=== PATIENT | male | born 1970 ===

== ENCOUNTER → 2020-05-07 13:06 | Outpatient (BNVA) | payer OTHER, SELFPAY | PROVIDERS: PCP Internal Medicine; Visit Provider Internal Medicine Cardiovascular Disease | DX: I25.10 Atherosclerotic heart disease of native coronary artery without angina pectoris (principal); I25.2 Old myocardial infarction | CPT/HCPCS: 93005 ==

== ENCOUNTER → 2020-11-12 12:49 | Outpatient (BNVA) | payer OTHER, SELFPAY | PROVIDERS: PCP Internal Medicine; Referring Provider Internal Medicine; Visit Provider Internal Medicine Cardiovascular Disease | DX: I25.10 Atherosclerotic heart disease of native coronary artery without angina pectoris (principal) | CPT/HCPCS: 93005 ==

== ENCOUNTER → 2021-12-17 15:00 | Outpatient (BNVA) | payer BC, SELFPAY | PROVIDERS: PCP Internal Medicine; Visit Provider Internal Medicine Cardiovascular Disease | DX: I25.10 Atherosclerotic heart disease of native coronary artery without angina pectoris (principal); I25.2 Old myocardial infarction; R94.31 Abnormal electrocardiogram [ECG] [EKG] | CPT/HCPCS: 93005 ==

== ENCOUNTER → 2022-01-11 14:49 | Outpatient (REF) | payer BC, SELFPAY ==
--- NOTE | 2022-01-11 14:56 | CA_ITS ---
Transthoracic Echocardiogram Patient (Last, First, Middle): Corby Crews, Gender: Male Date of : 1970 Age: 51 Procedure Date: 01/11/2022 Procedure Type: Transthoracic Echocardiogram Location: OP Height: 172.72 cm Weight: 113.4 kg BSA: 2.25 m2 Heart Rate: 64 bpm BP: 112 / 80 mmHg [place] Drawer: SB Referring MD: Jayme Smallwood MD Telegraph Lineman: Jayme Smallwood MD Symptoms: I25.10 - Atherosclerotic heart disease of [place] coronary artery without... Study Quality: Adequate ECG Rhythm: Sinus Conclusions: - Normal left ventricular size, thickness, and systolic function. The visually estimated ejection fraction is between 55-60%. There is evidence of regional wall motion abnormalities. Diastolic function is normal for age. - The apical inferior segment is hypokinetic. - Normal right ventricular cavity size and systolic function. Findings Left Ventricle Normal left ventricular size, thickness, and systolic function. The visually estimated ejection fraction is between 55-60%. There is evidence of regional wall motion abnormalities. Diastolic function is normal for age. Wall Motion Rest Echo Findings The apical inferior segment is hypokinetic. Right Ventricle Normal right ventricular cavity size and systolic function. Atria Both atria are normal in size. Aortic Valve Normal aortic valve structure and function. There is no aortic valve stenosis. There is no aortic valve regurgitation. Mitral Valve Normal mitral valve structure and function. There is no mitral valve regurgitation. There is no mitral valve stenosis. Pulmonic Valve The pulmonic valve is likely normal. Tricuspid Valve Normal tricuspid valve structure. There is trace tricuspid valve regurgitation. Normal right atrial pressure. There is no evidence of pulmonary hypertension. Great Vessels All visible segments of the aorta are normal in size. The visualized portions of the pulmonary artery and branches are normal. Venous The inferior vena cava is normal in size and collapses greater than 50% with inspiration. Pericardium/Pleural There is no evidence of pericardial effusion. Prior Study Comparison No prior study available for comparison. Measurements 2D Linear Measurements IVSd: 0.85 0.6-0.9/0.6-1.0 cm LVIDd: 4.96 3.9-5.3/4.2-5.9 cm LVIDd Index: 2.20 2.4-3.2/2.2-3.1 cm/m2 LVIDs: 3.35 2.0-3.6 cm LVPWd: 0.90 0.7-1.1 cm LA Diam: 3.50 2.7-3.8/3.0-4.0 cm LAIDs Index: 1.56 1.5-2.3 cm/m2 LV Mass: 187.43 67-162/88-224 g LV Mass Index: 83.30 43-95/49-115 g/m2 LVOT Diam: 2.20 3.0+(-)1.3 cm 2D Systolic Function EF 4C: 57.40 >55% EF 2C: 61.70 >55% EF BiP: 59.10 >55% Mitral Valve MV Pk E: 0.71 MV PK A: 0.45 MV Decel Time: 170.00 E/A: 1.60 E'Lateral: 12.80 E'Medial: 9.25 E/E' Med: 7.60 E/E' Lat: 5.50 PHT: 50.00 MVA PHT: 4.40 Decel [place]: 4.17 Aortic Valve AoV Pk Jong: 1.15 AoV Mn Jong: 0.79 AoV VTI: 0.26 AoV Pk Grad: 5.00 Aov Mn Grad: 3.00 LIBORIO Cont.VTI: 3.33 LVOT LVOT Pk Jong: 1.10 LVOT Mn Jong: 0.73 LVOT VTI: 0.23 LVOT Pk Grad: 5.00 LVOT Mn Grad: 3.00 LVOT Diam: 2.20 LVOT Area: 3.80 Diastolic Function MV Pk E: 0.71 MV Pk A: 0.45 E/A: 1.60 E'Medial: 9.25 E/E' Med: 7.60 E' Laterial: 12.80 E/E' Lat: 5.50 Right Ventricle TAPSE (mm): 19.80 Tricuspid Valve TR Pk Jong: 2.16 TR Pk Grad: 19.00 RA Press: 3.00 RVSP: 22.00 Great Vessels Aorta Sinus of Valsalva: 2.90 2.0-3.5 cm Ao Asc: 2.60 2.1-3.4 cm Pulmonary Veins Pulm Vein S/D 1.20 Pulmonary Valve PV Pk Jong: 1.10 Peak PV Grad: 5.00 Updated in Other Vendor System with Status of Final Jayme Smallwood MD electronically signed on 01/12/2022 6:16:56 PM with status of Final
== END ==
LOC: HO.CARD 14:49
PROVIDERS: PCP Internal Medicine; Visit Provider Internal Medicine Cardiovascular Disease
DX: I25.10 Atherosclerotic heart disease of native coronary artery without angina pectoris (principal)
CPT/HCPCS: 93306

== ENCOUNTER → 2022-02-11 10:56 | Outpatient (REF) | payer BC, SELFPAY ==
--- NOTE | 2022-02-11 10:59 | CA_ITS ---
Acquisition Time: 2022-02-11 11:18:30 Total Exercise Time: 00:10:38 Test Indications: ABN EKG Medications: SEE CHART Protocol: NASEEM Max HR: 155 BPM 91% of Pred: 170 BPM Max BP: 152/070 mmHG Max Work Load: 12.7 METS Exercise stress test with exercise 10 min 38 sec of Naseem protocol, acheiving > 85% MPHR, 12.7 METs, without anginal symptoms, with isolated PVCs, with normotensive response to exercise, without EKG changes meeting criteria for ischemia. Echo images obtained by tech at rest and immediately post peak exercise. Definity contrast used. Test reviewed with Dr Aguirre Referred By: Jayme Smallwood Overread By: BECKY SCHREIBER
== END ==
LOC: HO.CARD 10:56
PROVIDERS: PCP Internal Medicine; Visit Provider Internal Medicine Cardiovascular Disease
DX: I25.10 Atherosclerotic heart disease of native coronary artery without angina pectoris (principal)
CPT/HCPCS: 93350; Q9957

== ENCOUNTER 2022-11-29 15:07 | Outpatient (AMB) | payer BC, SELFPAY ==
[2022-11-29 15:10] VITALS: BP 134/72; PULSE 77; BMI 36.8
--- NOTE | 2022-11-29 15:10 | A.OFFVIS_ITS ---
Intake Vital Signs 11/29/22 15:10 Height 5 ft 9 in Weight 249 lb 1.957 oz BMI 36.8 BP 134/72 Blood Pressure Location Lt brachial Position Sitting Pulse 77 Intake Visit Reasons: 1 year fu Intake Note: 1 year f/u Mobile Sales Expert Required: No Allergies No Known Allergies Allergy (Verified 11/29/22 15:13) Medication List - Last Reconciled 11/29/22 by Jayme Smallwood MD aspirin (Adult Low Dose Aspirin) 81 mg PO DAILY atorvastatin 80 mg PO DAILY metoprolol tartrate 25 mg PO BID HPI HPI Comments History of Present Illness Details 51-year-old gentleman who was taken for cardiac cath in the setting of inferior STEMI. He was found to have a proximal RCA 100% stenosis which was treated with a 3.5 mm x 18 mm [place] BRISA post dilated to 3.75 mm. He has been asymptomatic. He has no CP, SOB or bleeding. He returns for follow-up to 1 year. He continues to be asymptomatic. He has not been as active as before and gained some weight. His EKG on this visit is different and he has Q-waves in anterolateral leads and I cannot rule out underlying lateral infarct. Discussing with him he is denying any symptoms in particular does not have symptoms similar to when he presented with inferior STEMI. He is saying he has not been as active as before and he has gained some weight. Blood pressure control is good. Otherwise doing well. 11/29/22: He returns for follow-up. We will refer him for echocardiography which showed distal inferior wall motion. No when stress testing where he was able to exercise to 10.7 metabolic equivalents without any significant symptoms and overall stress echocardiogram was normal. He returns for follow-up and has been doing well. Taking medications regularly. No concerns on his part [facility] Surgical History History of heart artery stent Hx of cardiac cath Family History Father Heart murmur Mother No problems noted. Social History Alcohol intake: current Alcohol intake frequency: a few times a week Alcohol type: beer, wine and hard liquor Patient Tobacco Use Status: Former Tobacco user Quit Date: 2016 Years Smoked: 30 +/- Review of Systems ENT Reports dizziness Card Denies chest pain, Denies chest pain at rest, Denies chest pain with activity, Denies rapid heart rate, Denies pedal edema, Denies edema, Denies leg edema, Denies lightheadedness, Denies palpitations, Denies dyspnea, Denies dyspnea on exertion and Denies orthopnea Resp Denies cough, Denies dyspnea and Denies dyspnea on exertion GI Denies hematochezia and Denies change in stool character Musc Denies abnormal gait, Reports limited range of motion, Reports muscle cramps, Denies muscle weakness, Denies numbness, Denies radiating pain into limb, Denies stiffness and Denies tingling Neuro Denies abnormal gait, Reports dizziness, Denies numbness and Denies tingling Endo Denies palpitations Physical Exam Vital Signs: Last Vital Signs Pulse 77 11/29/22 15:10 BP 134/72 11/29/22 15:10 BMI result Body Mass Index 36.8 GENERAL APPEARANCE: in no acute distress, pleasant. NECK: no carotid bruit, no jugular venous distention. SKIN: no suspicious lesions, warm and dry. HEART: no murmurs, regular rate and rhythm. LUNGS: clear to auscultation bilaterally. ABDOMEN: soft, nontender. EXTREMITIES: no edema. PERIPHERAL PULSES: equal. NEUROLOGIC: No gross deficits, AAO X 3 Office Procedures EKG Details: Sinus rhythm 77 beats per minute, inferior infarct, cannot rule out anterolateral infarct, QTC 454 milliseconds. [id number], Complete Assessment & Plan Assessment & Plan (1) CAD (coronary artery disease): Comment: Stable. Code(s): I25.10 - Atherosclerotic heart disease of [place] coronary artery without angina pectoris Qualifiers: Coronary Disease-Associated Artery/Lesion type: [place] artery [place] vs. transplanted heart: [place] heart Associated angina: without angina Qualified Code(s): I25.10 - Atherosclerotic heart disease of [place] coronary artery without angina pectoris (2) Abnormal EKG: Code(s): R94.31 - Abnormal electrocardiogram [ECG] [EKG] Plan 52-year-old gentleman with known inferior STEMI in the past with primary PCI to his returning for follow-up. He previously had EKG performed which showed inferior as well as anterolateral infarct. EKGs still showing the same changes. His echocardiography has not shown any evidence of anterior or lateral infarction. Distal inferior wall motion was noticed on the resting echocardiography but stress echocardiogram overall was normal. He has been he has showed at this stage. He will report to us if he developed any discomfort in his arms or chest. Follow-up with us in 1 year. Thank you for allowing me to participate in the care of your patient. Please feel free to contact me if you have any questions. Coding Level of Care Code Est Pt Level 4 (08326) Diagnoses Coronary artery disease involving [place] coronary artery of [place] heart without angina pectoris I25.10 Coronary Disease-Associated Artery/Lesion type: [place] artery [place] vs. transplanted heart: [place] heart Associated angina: without angina Abnormal EKG R94.31 CPT Codes EKG - CPT: 62132-[id number], Complete ([id number])
== END 2022-11-29 15:27 | disposition home or self-care (01) ==
PROVIDERS: PCP Internal Medicine; Visit Provider Internal Medicine Cardiovascular Disease
DX: I25.10 Atherosclerotic heart disease of native coronary artery without angina pectoris (principal); R94.31 Abnormal electrocardiogram [ECG] [EKG]
CPT/HCPCS: 93010; 99214

== ENCOUNTER → 2022-11-29 15:07 | Outpatient (BNVA) | payer BC, SELFPAY | PROVIDERS: PCP Internal Medicine; Visit Provider Internal Medicine Cardiovascular Disease | DX: I25.10 Atherosclerotic heart disease of native coronary artery without angina pectoris (principal); R94.31 Abnormal electrocardiogram [ECG] [EKG]; I25.2 Old myocardial infarction | CPT/HCPCS: 93005 ==

== ENCOUNTER 2023-12-05 10:21 | Outpatient (AMB) | payer BC, SELFPAY ==
[2023-12-05 10:44] VITALS: BP 122/80; PULSE 73; BMI 37.4
--- NOTE | 2023-12-05 10:44 | MHC.OFFVIS ---
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 He was found to have a proximal RCA 100% stenosis which was treated with a 3.5 mm x 18 mm [place] BRISA post dilated to 3.75 mm. He has been asymptomatic. He has no CP, SOB or bleeding. He returns for follow-up to 1 year. He continues to be asymptomatic. He has not been as active as before and gained some weight. His EKG on this visit is different and he has Q-waves in anterolateral leads and I cannot rule out underlying lateral infarct. Discussing with him he is denying any symptoms in particular does not have symptoms similar to when he presented with inferior STEMI. He is saying he has not been as active as before and he has gained some weight. Blood pressure control is good. Otherwise doing well. 11/29/22: He returns for follow-up. We will refer him for echocardiography which showed distal inferior wall motion. No when stress testing where he was able to exercise to 10.7 metabolic equivalents without any significant symptoms and overall stress echocardiogram was normal. He returns for follow-up and has been doing well. Taking medications regularly. 12/05/2023: He is here for follow-up. No chest pain or shortness of breath. His previous EKG showed inferior infarct as well as anterolateral infarct. Echo and stress test did not show any evidence of ischemia or wall motion in that territory. He continues to have similar changes on his ECG. He continues to be asymptomatic. [facility] Surgical History History of heart artery stent Hx of cardiac cath Family History Father Heart murmur Mother No problems noted. Social History Alcohol intake: current Alcohol intake frequency: a few times a week Alcohol type: beer, wine and hard liquor Patient Tobacco Use Status: Former Tobacco user Years Smoked: 30 +/- Review of Systems ENT Reports dizziness Card Denies chest pain, Denies chest pain at rest, Denies chest pain with activity, Denies rapid heart rate, Denies pedal edema, Denies edema, Denies leg edema, Denies lightheadedness, Denies palpitations, Denies dyspnea, Denies dyspnea on exertion and Denies orthopnea Resp Denies cough, Denies dyspnea and Denies dyspnea on exertion GI Denies hematochezia and Denies change in stool character Musc Denies abnormal gait, Reports limited range of motion, Reports muscle cramps, Denies muscle weakness, Denies numbness, Denies radiating pain into limb, Denies stiffness and Denies tingling Neuro Denies abnormal gait, Reports dizziness, Denies numbness and Denies tingling Endo Denies palpitations Physical Exam Vital Signs: Last Vital Signs Pulse 73 12/05/23 10:44 BP 122/80 12/05/23 10:44 BMI result Body Mass Index 37.4 GENERAL APPEARANCE: in no acute distress, pleasant. NECK: no carotid bruit, no jugular venous distention. SKIN: no suspicious lesions, warm and dry. HEART: no murmurs, regular rate and rhythm. LUNGS: clear to auscultation bilaterally. ABDOMEN: soft, nontender. EXTREMITIES: no edema. PERIPHERAL PULSES: equal. NEUROLOGIC: No gross deficits, AAO X 3 Office Procedures EKG Details: Sinus rhythm 73 beats per minute, inferior infarct, anterolateral infarct, QTC 453 milliseconds. No new changes. [id number], Complete Assessment & Plan Assessment & Plan (1) Abnormal EKG: Code(s): R94.31 - Abnormal electrocardiogram [ECG] [EKG] Category: Medical (2) CAD (coronary artery disease): Comment: Stable. Code(s): I25.10 - Atherosclerotic heart disease of [place] coronary artery without angina pectoris Category: Medical Qualifiers: Coronary Disease-Associated Artery/Lesion type: [place] artery [place] vs. transplanted heart: [place] heart Associated angina: without angina Qualified Code(s): I25.10 - Atherosclerotic heart disease of [place] coronary artery without angina pectoris (3) Stable angina: Code(s): I20.89 - Other forms of angina pectoris Category: Medical Plan 53-year-old gentleman with known inferior STEMI in the past with primary PCI who is returning for follow-up. He previously had EKG performed which showed inferior as well as anterolateral infarct. EKGs still showing the same changes. His echocardiography has not shown any evidence of anterior or lateral infarction. Distal inferior wall motion was noticed on the resting echocardiography but stress echocardiogram overall was normal. He has been reassured at this stage. He continues to be asymptomatic. Follow-up with us in 6 months. Thank you for allowing me to participate in the care of your patient. Please feel free to contact me if you have any questions. Coding Level of Care Code Est Pt Level 4 (88545) Diagnoses Abnormal EKG R94.31 Coronary artery disease involving [place] coronary artery of [place] heart without angina pectoris I25.10 Coronary Disease-Associated Artery/Lesion type: [place] artery [place] vs. transplanted heart: [place] heart Associated angina: without angina Stable angina I20.89 CPT Codes EKG - CPT: 49572-[id number], Complete ([id number])
== END 2023-12-05 11:01 | disposition home or self-care (01) ==
PROVIDERS: PCP Internal Medicine; Visit Provider Internal Medicine Cardiovascular Disease
DX: I25.118 Atherosclerotic heart disease of native coronary artery with other forms of angina pectoris (principal); R94.31 Abnormal electrocardiogram [ECG] [EKG]
CPT/HCPCS: 93010; 99214

== ENCOUNTER → 2023-12-05 10:21 | Outpatient (BNVA) | payer BC, SELFPAY | PROVIDERS: PCP Internal Medicine; Visit Provider Internal Medicine Cardiovascular Disease | DX: R94.31 Abnormal electrocardiogram [ECG] [EKG] (principal); I25.118 Atherosclerotic heart disease of native coronary artery with other forms of angina pectoris; I25.2 Old myocardial infarction | CPT/HCPCS: 93005 ==

== ENCOUNTER 2024-08-08 08:58 | Outpatient (AMB) | payer BC, SELFPAY ==
[2024-08-08 09:21] VITALS: BP 130/82; PULSE 71; BMI 356.8
--- NOTE | 2024-08-08 09:21 | MHC.OFFVIS ---
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 He was found to have a proximal RCA 100% stenosis which was treated with a 3.5 mm x 18 mm [place] BRISA post dilated to 3.75 mm. He has been asymptomatic. He has no CP, SOB or bleeding. He returns for follow-up to 1 year. He continues to be asymptomatic. He has not been as active as before and gained some weight. His EKG on this visit is different and he has Q-waves in anterolateral leads and I cannot rule out underlying lateral infarct. Discussing with him he is denying any symptoms in particular does not have symptoms similar to when he presented with inferior STEMI. He is saying he has not been as active as before and he has gained some weight. Blood pressure control is good. Otherwise doing well. 11/29/22: He returns for follow-up. We will refer him for echocardiography which showed distal inferior wall motion. No when stress testing where he was able to exercise to 10.7 metabolic equivalents without any significant symptoms and overall stress echocardiogram was normal. He returns for follow-up and has been doing well. Taking medications regularly. 12/05/2023: He is here for follow-up. No chest pain or shortness of breath. His previous EKG showed inferior infarct as well as anterolateral infarct. Echo and stress test did not show any evidence of ischemia or wall motion in that territory. He continues to have similar changes on his ECG. He continues to be asymptomatic. 08/08/2024: He is here for follow-up. Denying chest pain or shortness of breath. He is playing [employer] and has no exertional issues. Taking medications regularly. [facility] Surgical History History of heart artery stent Hx of cardiac cath Family History Father Heart murmur Mother No problems noted. Social History Alcohol intake: current Alcohol intake frequency: a few times a week Alcohol type: beer, wine and hard liquor Patient Tobacco Use Status: Former Tobacco user Years Smoked: 30 +/- Review of Systems Const Denies chills, Denies fatigue, Denies fever(s), Denies frequent falls, Denies weakness, Denies weight gain and Denies weight loss ENT Denies dizziness Card Denies chest pain, Denies leg edema, Denies lightheadedness, Denies palpitations, Denies dyspnea and Denies dyspnea on exertion Resp Denies cough, Denies dyspnea and Denies dyspnea on exertion GI Denies hematochezia Musc Denies abnormal gait, Denies muscle weakness, Denies numbness, Denies radiating pain into limb and Denies tingling Neuro Denies abnormal gait, Denies dizziness, Denies frequent falls, Denies numbness, Denies tingling and Denies weakness Endo Denies fatigue and Denies palpitations Physical Exam Vital Signs: Last Vital Signs Pulse 71 08/08/24 09:21 BP 130/82 08/08/24 09:21 BMI result Body Mass Index 356.8 GENERAL APPEARANCE: in no acute distress, pleasant. NECK: no carotid bruit, no jugular venous distention. SKIN: no suspicious lesions, warm and dry. HEART: no murmurs, regular rate and rhythm. LUNGS: clear to auscultation bilaterally. ABDOMEN: soft, nontender. EXTREMITIES: no edema. PERIPHERAL PULSES: equal. NEUROLOGIC: No gross deficits, AAO X 3 Office Procedures EKG Details: Sinus rhythm 71 beats per minute, normal axis, poor R-wave progression, QTC 436 milliseconds. [id number], Complete Assessment & Plan Assessment & Plan (1) CAD (coronary artery disease): Comment: Stable. Code(s): I25.10 - Atherosclerotic heart disease of [place] coronary artery without angina pectoris Category: Medical Qualifiers: Coronary Disease-Associated Artery/Lesion type: [place] artery [place] vs. transplanted heart: [place] heart Associated angina: without angina Qualified Code(s): I25.10 - Atherosclerotic heart disease of [place] coronary artery without angina pectoris (2) Stable angina: Code(s): I20.89 - Other forms of angina pectoris Category: Medical Plan 54-year-old gentleman with known inferior STEMI in the past with primary PCI who is returning for follow-up. He previously had EKG performed which showed inferior as well as anterolateral infarct. EKGs still showing the same changes. His echocardiography has not shown any evidence of anterior or lateral infarction. Distal inferior wall motion was noticed on the resting echocardiography but stress echocardiogram overall was normal. He has been physically active and has no symptoms. His LDL target is less than 55. He is saying that he gets blood workup through his primary care physician at his office. We do not have access to that currently. Follow up in 1 year. Thank you for allowing me to participate in the care of your patient. Please feel free to contact me if you have any questions. Coding Level of Care Code Est Pt Level 3 (06765) Complex EM visit Add On G2211 Diagnoses Coronary artery disease involving [place] coronary artery of [place] heart without angina pectoris I25.10 Coronary Disease-Associated Artery/Lesion type: [place] artery [place] vs. transplanted heart: [place] heart Associated angina: without angina Stable angina I20.89 CPT Codes EKG - CPT: 81292-[id number], Complete ([id number])
--- OUTSIDE RECORDS SUMMARY | 2024-08-08 09:25 | XMS_ITS | Clinical Summary ---
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 03/26/2019 Active metoprolol tartrate (LOPRESSOR) 25 mg tablet Take 1 tablet (25 mg total) by mouth. 03/26/2019 Active atorvastatin (LIPITOR) 80 mg tablet Take 1 tablet (80 mg total) by mouth. 03/26/2019 Active Encounters Date Type Department Care Team Description 05/08/2024 Telephone Gastroenterology - [place] [address] [facility] [address] [place] [address] Timoteo Liao MD special procedure from Last 3 Months Social History Tobacco Use Types Packs/Day Years Used Date Smoking Tobacco: Never Assessed Sex and Gender Information Value Date Recorded Sex Assigned at Not on file Legal Sex Male 4:14 PM EST Gender Identity Not on file Sexual Orientation Not on file Plan of Treatment Health Maintenance Due Date Last Done Comments DTaP,Tdap,and Td Vaccines (1 - Tdap) 05/28/1990 Hepatitis B Vaccines (1 of 3 - 19+ 3-dose series) 05/28/1990 Pneumococcal Vaccine: 50+ Ye ars (1 of 2 - PCV) 05/28/1990 Pneumococcal Vaccine: Pediat rics (0 to 5 Years) and At-Risk Patients (6 to 64 Years) (1 of 2 - PCV) 05/28/1990 Zoster Vaccines (1 of 2) 05/28/2021 Colorectal Cancer Screening: Colonoscopy 01/27/2022 Depression Screening 01/27/2022 HIV Screening 01/27/2022 Hepatitis C Screening 01/27/2022 Social Influencers of Health Screening 01/27/2022 COVID-19 Vaccine ( - 2023-2 5 season) 2023 Influenza Vaccine (Season Ended) 2024 Hypertension/CHF/CAD Annual BMP Blood Test 01/31/2025 02/01/2024 Cholesterol Screening (Lipid Panel) 01/31/2029 02/01/2024 HIB Vaccines Aged Out No longer eligi ble based on patient's age to complete this topic HPV Vaccines Aged Out No longer eligi ble based on patient's age to complete this topic Hepatitis A Vaccines Aged Out No long er eligible based on patient's age to complete this topic IPV Vaccines Aged Out No longer eligi ble based on patient's age to complete this topic MMR Vaccines Aged Out No longer eligi ble based on patient's age to complete this topic Meningococcal ACWY Vaccine Aged Out N o longer eligible based on patient's age to complete this topic Meningococcal B Vaccine Aged Out No l onger eligible based on patient's age to complete this topic RSV Immunization Patients Un blaire 20 months Aged Out No longer eligible b ased on patient's age to complete this topic Varicella Vaccines Aged Out No longer eligible based on patient's age to complete this topic Procedures Procedure Name Priority Date/Time Associated Diagnosis Comments BASIC METABOLIC PANEL Routine 02/01/2024 11:27 AM EST CAD (coronary artery disease) IGT (impaired glucose tolerance) NAFLD (nonalcoholic fatty liver disease) LIPID PANEL WITH REFLEX TO DIRECT LDL Routine 02/01/2024 11:27 AM EST CAD (coronary artery disease) IGT (impaired glucose tolerance) NAFLD (nonalcoholic fatty liver disease) from Last 3 Months or Most Recently Relevant to Health Maintenance Results * (ABNORMAL) Lipid panel with reflex to direct LDL (02/01/2024 11:27 AM EST) Cholesterol 128 0 - 200 mg/dL LAB CHEMISTRY METHOD 02/01/2024 3:14 PM EST [facility] Triglycerides 167(H) 0 - 150 mg/dL LAB CHEMISTRY METHOD 02/01/2024 3:14 PM EST [facility] HDL 39(L) >=40 mg/dL LAB CHEMISTRY METHOD 02/01/2024 3:14 PM [facility] LDL Calculated 56 0 - 100 mg/dL LAB CHEMISTRY METHOD 02/01/2024 3:14 PM [facility] VLDL Cholesterol Alejo 33.4 mg/dL LAB CHEMISTRY METHOD 02/01/2024 3:14 PM [facility] Non HDL Chol. (LDL+VLDL) 89 <145 mg/dL LAB CHEMISTRY METHOD 02/01/2024 3:14 PM [facility] Chol/HDL Ratio 3.3 0.0 - 4.4 LAB CHEMISTRY METHOD 02/01/2024 3:14 PM [facility] Blood Venous blood specimen / Unknown Venipuncture / Unknown 02/01/2024 11:27 AM EST 02/01/2024 11:27 AM EST us Moustapha Friedman DO LAB BLOOD ORDERABLES Final Re sult [facility] [address] [place] [address], [place] [phone] * Basic metabolic panel (02/01/2024 11:27 AM EST) Sodium 140 133 - 145 mmol/L LAB CHEMISTRY METHOD 02/01/2024 3:14 PM [facility] Potassium 4.5 3.5 - 5.5 mmol/L LAB CHEMISTRY METHOD 02/01/2024 3:14 PM [facility] Chloride 108 96 - 110 mmol/L LAB CHEMISTRY METHOD 02/01/2024 3:14 PM [facility] CO2 29 21 - 32 mmol/L LAB CHEMISTRY METHOD 02/01/2024 3:14 PM [facility] Anion Gap 3 3 - 11 LAB CHEMISTRY METHOD 02/01/2024 3:14 PM [facility] Glucose 93 70 - 100 mg/dL LAB CHEMISTRY METHOD 02/01/2024 3:14 PM EST [facility] BUN 17 5 - 25 mg/dL LAB CHEMISTRY METHOD 02/01/2024 3:14 PM [facility] Creatinine 1.12 0.70 - 1.30 mg/dL LAB CHEMISTRY METHOD 02/01/2024 3:14 PM [facility] eGFR 79 >=60 mL/min/1. 73m2 LAB CHEMISTRY METHOD 02/01/2024 3:14 PM [facility] Comment:Calculation based on the??Chronic Kidney Disease Epidemiology Collaboration (CKD-EPI) equation refit??without adjustment for race. BUN/Creatinine Ratio 15.2 LAB CHEMISTRY METHOD 02/01/2024 3:14 PM [facility] Calcium 9.6 8.5 - 10.5 mg/dL LAB CHEMISTRY METHOD 02/01/2024 3:14 PM [facility] Blood Venous blood specimen / Unknown Venipuncture / Unknown 02/01/2024 11:27 AM EST 02/01/2024 11:27 AM EST us Moustapha Friedman DO LAB BLOOD ORDERABLES Final Re sult [facility] [address] [place] [address], from Last 3 Months or Most Recently Relevant to Health Maintenance Insurance [facility]) Care Teams Proofing Machine Operator Relationship Specialty Start Date End Date Moustapha Friedman DO [address] [place] [id number] PCP - General Internal Medicine 02/01/24
== END 2024-08-08 09:35 | disposition home or self-care (01) ==
LOC: HO.HCS 08:58
PROVIDERS: PCP Internal Medicine; Visit Provider Internal Medicine Cardiovascular Disease
DX: I25.118 Atherosclerotic heart disease of native coronary artery with other forms of angina pectoris (principal)
CPT/HCPCS: 93010; 99213

== ENCOUNTER → 2024-08-08 08:58 | Outpatient (BNVA) | payer BC, SELFPAY | PROVIDERS: PCP Internal Medicine; Visit Provider Internal Medicine Cardiovascular Disease | DX: I25.10 Atherosclerotic heart disease of native coronary artery without angina pectoris (principal) | CPT/HCPCS: 93005 ==